=== PATIENT | female | born 1995 | race Caucasian/White ===

== ENCOUNTER 2023-11-13 | Inpatient (IN) | payer OTHER | END 2023-11-16 11:44 | disposition home or self-care (01) | DRG 358 | PROVIDERS: ADMIT Specialist | PROC: 0WJG4ZZ Inspection of Peritoneal Cavity, Percutaneous Endoscopic Approach (ICD-10-PCS; principal; 2023-11-14) | PROC: 3E033XZ Introduction of Vasopressor into Peripheral Vein, Percutaneous Approach (ICD-10-PCS; 2023-11-14) | DX: K52.9 Noninfective gastroenteritis and colitis, unspecified (principal); R10.9 Unspecified abdominal pain; N83.202 Unspecified ovarian cyst, left side; N83.201 Unspecified ovarian cyst, right side ==

== ENCOUNTER 2024-06-02 14:16 | Emergency (ER) | payer OTHER, SELFPAY ==
[2024-06-02 15:10] LABS: #Basophils 0.03 10x3/uL (0.0-0.2); %Basophils 0.5 % (0.0-1.0); %Eosinophils 1.9 % (0.0-10.0); %Lymphocytes 32.8 % (21.0-51.0); %Monocytes 6.6 % (0.0-10.0); %Neutrophils 57.9 % (42.0-75.0); Hematocrit 36.8 % (36.0-47.0); Hemoglobin 12.8 g/dL (12.0-16.0); Mean Corpuscular HGB CONC 34.8 g/dL (32.0-36.0); Mean Corpuscular Hemoglobin 29.7 pg (27.0-31.0); Mean Corpuscular Volume 85.4 fL (78.0-98.0); Mean Platelet Volume 12.7 fL (7.4-10.4); Platelet Count 160 10x3/uL (130-400); RBC Distribution Width 12.6 % (11.5-14.5); Red Blood Cell (RBC) Count 4.31 mill/uL (4.20-5.40)
[2024-06-02] MEDS ORDERED: Famotidine 20 MG TAB ONE (15:17)
[2024-06-02 15:19] LABS: BHCG - Serum Negative (NEGATIVE); Pregs Control Background? CLEAR/WHITE (CLR/WHITE); Pregs Control Bar Appear? YES (CONTROL BAR)
[2024-06-02 15:25] LABS: ALT (SGPT) 8 U/L (8-55); AST (SGOT) 17 U/L (5-34); Albumin 4.3 g/dL (3.5-5.0); Alkaline Phosphatase 49 U/L (40-110); Anion Gap 13 mmol/L (10-20); BUN (Urea Nitrogen) 12 mg/dL (7.0-18.7); Bilirubin, Total 0.6 mg/dL (0.2-1.2); Calc. Creatinine Clearance 0 mL/min (70-130); Calcium 9.3 mg/dL (7.8-10.44); Carbon Dioxide 24 mmol/L (22-29); Chloride 106 mmol/L (98-107); Estimated GFR 108; Glucose 112 mg/dL (70-105); Potassium 3.8 mmol/L (3.5-5.1); Protein, Total 7.3 g/dL (6.0-8.3); Sodium 139 mmol/L (136-145)
== END 2024-06-02 16:40 | disposition home or self-care (01) ==
LOC: ERS 14:16
DX: R59.0 Localized enlarged lymph nodes (principal); R03.0 Elevated blood-pressure reading, without diagnosis of hypertension; Z55.6 Problems related to health literacy
CPT/HCPCS: 36415; 80053; 84703; 85025; 93005; 99283